=== PATIENT | male | born 1990 | race Caucasian/White ===

== ENCOUNTER 2021-11-24 23:07 | Emergency (ER) | payer OTHER ==
[~2021-11-24] VITALS: Ht 180.3 cm; Wt 81.6 kg
[2021-11-24 23:20] VITALS: BP 144/70
== END 2021-11-25 00:11 | disposition home or self-care (01) ==
LOC: ER 23:07
DX: R44.0 Auditory hallucinations (principal); Z93.0 Tracheostomy status